=== PATIENT | male | born 1995 | race Native Hawaiian/Other Pacific Islander ===

== ENCOUNTER 2018-09-07 09:17 | Emergency (ER) | payer BC ==
--- NOTE | 2018-09-07 09:55 | Emergency Department Report ---
ED ENT HPI - General Chief complaint: Sore Throat Stated complaint: COUGH COLD/THOART PAIN Time Seen by Provider: 09/07/18 09:38 Source: patient Mode of arrival: Ambulatory Limitations: No Limitations - History of Present Illness Initial comments: Patient is a 22-year-old male who is complaining of sore throat and mild cough since yesterday. Patient states he has some sinus issues several weeks ago and had some blood in his mucus and this has resolved. Patient starting last night started having some pain with swallowing pills 5 out of 10 in severity. Patient states his cough is nonproductive. Patient also has chills as well and mild body aches. - Related Data Previous Rx's Medication Instructions Recorded Last Taken Type Azithromycin [Zithromax] 250 mg PO DAILY #6 tablet 09/07/18 Unknown Rx HYDROcodone/APAP 5-325 [[place] 1 each PO Q4HR PRN #12 tablet 09/07/18 Unknown Rx 5/325] predniSONE [Deltasone] 20 mg PO QDAY #5 tab 09/07/18 Unknown Rx Allergies Allergy/AdvReac Type Severity Reaction Status Date / Time Penicillins Allergy Rash Verified 09/07/18 09:20 ED Dental HPI - General Chief complaint: Sore Throat Stated complaint: COUGH COLD/THOART PAIN Time Seen by Provider: 09/07/18 09:38 Source: patient Mode of arrival: Ambulatory Limitations: No Limitations - Related Data Previous Rx's Medication Instructions Recorded Last Taken Type Azithromycin [Zithromax] 250 mg PO DAILY #6 tablet 09/07/18 Unknown Rx HYDROcodone/APAP 5-325 [[place] 1 each PO Q4HR PRN #12 tablet 09/07/18 Unknown Rx 5/325] predniSONE [Deltasone] 20 mg PO QDAY #5 tab 09/07/18 Unknown Rx Allergies Allergy/AdvReac Type Severity Reaction Status Date / Time Penicillins Allergy Rash Verified 09/07/18 09:20 ED Review of Systems ROS: Stated complaint: COUGH COLD/THOART PAIN Other details as noted in HPI Comment: All other systems reviewed and negative ED Past Medical Hx - Past Medical History Previous Medical History?: No - Surgical History Past Surgical History?: No - Social History Smoking Status: Never Smoker Substance Use Type: None - Medications Home Medications: Home Medications Medication Instructions Recorded Confirmed Last Taken Type Azithromycin [Zithromax] 250 mg PO DAILY #6 tablet 09/07/18 Unknown Rx HYDROcodone/APAP 5-325 [[place] 1 each PO Q4HR PRN #12 tablet 09/07/18 Unknown Rx 5/325] predniSONE [Deltasone] 20 mg PO QDAY #5 tab 09/07/18 Unknown Rx ED Physical Exam - General Limitations: No Limitations General appearance: alert, in no apparent distress - Head Head exam: Present: atraumatic, normocephalic - Eye Eye exam: Present: normal appearance - ENT ENT exam: Present: mucous membranes moist. Absent: normal orophraynx (patient's posterior pharynx shows some bilateral tonsillar swelling with erythema with no exudates.) - Neck Neck exam: Present: normal inspection, lymphadenopathy (anterior cervical lymph nodes are present) - Respiratory Respiratory exam: Present: normal lung sounds bilaterally. Absent: respiratory distress, wheezes, rales, rhonchi - Cardiovascular Cardiovascular Exam: Present: regular rate, normal rhythm. Absent: systolic murmur, diastolic murmur, rubs, gallop - GI/Abdominal GI/Abdominal exam: Present: soft, normal bowel sounds - Rectal Rectal exam: Present: deferred - Extremities Exam Extremities exam: Present: normal inspection - Back Exam Back exam: Present: normal inspection - Neurological Exam Neurological exam: Present: alert, oriented X3 - Psychiatric Psychiatric exam: Present: normal affect, normal mood - Skin Skin exam: Present: warm, dry, intact, normal color. Absent: rash ED Course Vital Signs 09/07/18 09:21 Temperature 99.5 F Pulse Rate 87 Respiratory 16 Rate Blood Pressure 130/78 O2 Sat by Pulse 100 Oximetry ED Medical Decision Making - Medical Decision Making Because of the fever with no swelling and tonsillar swelling patient will be started on Z-Simba and meds for symptomatic relief. Critical care attestation.: If time is entered above; I have spent that time in minutes in the direct care of this critically ill patient, excluding procedure time. ED Disposition Clinical Impression: Pharyngitis Disposition: TO HOME OR SELFCARE Is pt being admited?: No Does the pt Need Aspirin: No Condition: Stable Instructions: Pharyngitis (ED) Time of Disposition: 09:55
== END 2018-09-07 10:21 | disposition home or self-care (01) ==
LOC: ED 09:17
CPT/HCPCS: 99282

== ENCOUNTER 2019-08-01 19:14 | Emergency (ER) | payer BC, OTHER ==
[2019-08-01 20:06] VITALS: BP 127/82
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
[2019-08-02] MEDS ORDERED: IBUPROFEN 400 MG TAB PO ONE (02:14)
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
== END 2019-08-02 02:39 | disposition home or self-care (01) ==
LOC: ED 19:14
DX: J11.1 Influenza due to unidentified influenza virus with other respiratory manifestations (principal); J32.9 Chronic sinusitis, unspecified; M62.838 Other muscle spasm; Z79.899 Other long term (current) drug therapy; Z88.0 Allergy status to penicillin; V89.2XXA Person injured in unspecified motor-vehicle accident, traffic, initial encounter; Y93.89 Activity, other specified; Y92.410 Unspecified street and highway as the place of occurrence of the external cause; Y99.8 Other external cause status
CPT/HCPCS: 72040; 72100

== ENCOUNTER 2021-07-08 15:29 | Emergency (ER) | payer BC ==
[2021-07-08 15:52] VITALS: BP 126/78
--- NOTE | 2021-07-08 16:20 | Emergency Department Report ---
ED Fever HPI - General Chief Complaint: Fever Stated Complaint: FEELING COLD, BODY PAIN AND FEVER PUI?: No Time Seen by Provider: 07/08/21 15:52 Source: patient Exam Limitations: no limitations - History of Present Illness Initial Comments: Chief complaint fever chills pain in groin HPI: This is a 25-year-old male without significant past medical history presents with fever chills a knot in his groin. Painful tenderness at the groin upper thigh. No dysuria, no cough, no urethral discharge. No previous history of abscess. He denies cough. He denies shortness of breath. Denies body aches. Timing/Duration: other (For several days) Fever Severity/Quality: subjective Associated Symptoms: other (right groin knot) ED Review of Systems ROS: Stated complaint: FEELING COLD, BODY PAIN AND FEVER Other details as noted in HPI Constitutional: chills, fever Respiratory: denies: cough, shortness of breath Gastrointestinal: denies: abdominal pain, nausea, vomiting Skin: rash, lesions ED Past Medical Hx - Past Medical History Previous Medical History?: No - Surgical History Past Surgical History?: Yes Additional Surgical History: right pinky finger fx - Social History Smoking Status: Never Smoker Substance Use Type: None - Medications Home Medications: Home Medications Medication Instructions Recorded Confirmed Last Taken Type Azithromycin [Zithromax] 250 mg PO DAILY #6 tablet 09/07/18 Unknown Rx HYDROcodone/APAP 5-325 [[place] 1 each PO Q4HR PRN #12 tablet 09/07/18 Unknown Rx 5/325] predniSONE [Deltasone] 20 mg PO QDAY #5 tab 09/07/18 Unknown Rx Ibuprofen [Motrin 400 MG tab] 400 mg PO Q6H PRN #20 tablet 08/02/19 Unknown Rx Loratadine [Claritin] 10 mg PO DAILY PRN #14 tablet 08/02/19 Unknown Rx methOCARBAMOL [Robaxin TAB] 750 mg PO Q8H PRN #9 tablet 08/02/19 Unknown Rx Ibuprofen [Motrin 800 MG tab] 800 mg PO Q6H PRN #20 tablet 07/08/21 Unknown Rx Sulfamethoxazole/Trimethoprim 1 each PO BID 10 Days #20 tablet 07/08/21 Unknown Rx [Bactrim DS TAB] ED Physical Exam - General Limitations: No Limitations General appearance: alert, in no apparent distress - Head Head exam: Present: atraumatic, normocephalic - ENT ENT exam: Present: mucous membranes moist - Neck Neck exam: Present: normal inspection, full ROM - GI/Abdominal GI/Abdominal exam: Present: soft. Absent: distended, tenderness, guarding, rebound - Neurological Exam Neurological exam: Present: alert, oriented X3 - Psychiatric Psychiatric exam: Present: normal affect, normal mood - Skin Skin exam: Present: erythema, other (Right superior medial thigh with redness tender fluctuance, redness 4 cm in diameter) ED Course Vital Signs 07/08/21 15:51 Temperature 100.3 F H Pulse Rate 113 H Respiratory 16 Rate Blood Pressure 126/78 O2 Sat by Pulse 96 Oximetry ED Medical Decision Making - Medical Decision Making Right thigh abscess versus lymphadenitis prescribed Bactrim ibuprofen for the outpatient medicine physician Critical care attestation.: If time is entered above; I have spent that time in minutes in the direct care of this critically ill patient, excluding procedure time. ED Disposition Clinical Impression: Cutaneous abscess of right lower extremity Disposition: HOME / SELF CARE / HOMELESS Is pt being admited?: No Does the pt Need Aspirin: No Condition: Stable Instructions: Skin Abscess, [id number] Prescriptions: Sulfamethoxazole/Trimethoprim [Bactrim DS TAB] 1 each PO BID 10 Days #20 tablet Ibuprofen [Motrin 800 MG tab] 800 mg PO Q6H PRN #20 tablet PRN Reason: Pain , Severe (7-10) Referrals: MARIANN ABEL MD [Staff Physician] - 3-5 Days Forms: Work/School Release Form(ED)
== END 2021-07-08 16:29 | disposition home or self-care (01) ==
LOC: ED 15:29
DX: L02.415 Cutaneous abscess of right lower limb (principal); Z88.0 Allergy status to penicillin; Z79.899 Other long term (current) drug therapy
CPT/HCPCS: 99282